=== PATIENT | female | born 1930 | race Caucasian/White ===

== ENCOUNTER 2017-08-24 15:19 | Inpatient (IN) | payer MEDICARE, BC ==
[2017-08-24] MEDS ORDERED: ALBUTEROL NEB SOL 2.5MG/3ML 1 VIAL SOL NEB PRN (15:30)
[2017-08-24] MEDS: SODIUM CHLORIDE 0.9% FLUSH 10 ML SOL IV SCH ×3 (16:34→23:49)
[2017-08-24] MEDS: SOLUMEDROL 125 MG/2 ML 125 MG/2 ML PDS IV SCH ×2 (16:35→22:07)
[2017-08-24] MEDS: CEFTRIAXONE 1 GM (PREMIX) 1 GM/50 ML SOL IV SCH (16:35)
[2017-08-24] MEDS: AZITHROMYCIN 250 MG TAB PO SCH (16:37)
[2017-08-24] MEDS: ALBUTEROL/IPRATROPIUM 1 VIAL SOL INH SCH ×2 (18:30→22:04)
[2017-08-24] MEDS ORDERED: LOPERAMIDE HYDROCHLORIDE 2 MG CAP PO PRN (22:00)
[2017-08-24] MEDS ORDERED: AMLODIPINE 5 MG TAB PO ONE (22:21)
[2017-08-24] MEDS: BUDESONIDE 0.5 MG/2 ML AMPUL.NEB INH SCH (23:50)
[2017-08-25] MEDS: SOLUMEDROL 125 MG/2 ML 125 MG/2 ML PDS IV SCH ×4 (03:50→20:45)
[2017-08-25] MEDS: SODIUM CHLORIDE 0.9% FLUSH 10 ML SOL IV SCH ×4 (03:50→20:45)
[2017-08-25] MEDS ORDERED: AMLODIPINE 5 MG TAB PO ONE (06:44)
[2017-08-25] MEDS: LEVOTHYROXINE SODIUM 50 MCG TAB PO SCH (06:44)
[2017-08-25 07:39] LABS: BASOPHILS % (AUTO) 0 % (0-3); EOSINOPHILS % (AUTO) 0 % (0-9); HEMATOCRIT 30 % (35-47); MEAN CORPUSCULAR HGB CONC 31.4 gm/dl (32.0-36.0); MEAN CORPUSCULAR VOLUME 89 fL (81-99); MONOCYTES % (AUTO) 0.9 % (0-12); NEUTROPHILS % (AUTO) 96.6 % (37-80)
[2017-08-25 07:43] LABS: CALCIUM 8.4 mg/dl (8.5-10.1); POTASSIUM 4.3 mMol/L (3.5-5.1)
[2017-08-25] MEDS: ALBUTEROL/IPRATROPIUM 1 VIAL SOL INH SCH ×4 (08:07→20:43)
[2017-08-25] MEDS: ALLOPURINOL 100 MG TAB PO SCH (08:15)
[2017-08-25] MEDS: OXYCODONE HYDROCHLORIDE 5 MG TAB PO SCH ×2 (08:15→20:47)
[2017-08-25] MEDS: ASPIRIN EC 81 MG PO SCH (08:15)
[2017-08-25] MEDS: FUROSEMIDE 20 MG TAB PO SCH ×2 (08:15→12:45)
[2017-08-25] MEDS: POTASSIUM CHLORIDE 10 MEQ TER PO SCH (08:15)
[2017-08-25] MEDS: ENOXAPARIN 40 MG SOL SC SCH (08:16)
[2017-08-25] MEDS: POLYETHYLENE GLYCOL 17 GM/1 TBS PDS PO SCH (08:16)
[2017-08-25] MEDS ORDERED: OXYCODONE HYDROCHLORIDE 5 MG TAB PO SCH (09:00)
[2017-08-25] MEDS ORDERED: OMEPRAZOLE 20 MG CAPSULE PO SCH (09:00)
[2017-08-25] MEDS: BUDESONIDE 0.5 MG/2 ML AMPUL.NEB INH SCH ×2 (09:52→20:52)
[2017-08-25] MEDS: PANTOPRAZOLE SODIUM 40 MG ECT PO SCH (09:52)
[2017-08-25] MEDS: METOPROLOL SUCCINATE 25 MG TAB.ER.24H PO SCH (09:53)
[2017-08-25] MEDS: BENAZEPRIL PO SCH (10:57)
[2017-08-25] MEDS: AMLODIPINE PO SCH (10:57)
[2017-08-25] MEDS: CEFTRIAXONE 1 GM (PREMIX) 1 GM/50 ML SOL IV SCH (15:34)
[2017-08-25] MEDS: AZITHROMYCIN 250 MG TAB PO SCH (15:34)
[2017-08-26] MEDS: SODIUM CHLORIDE 0.9% FLUSH 10 ML SOL IV SCH ×4 (02:29→16:46)
[2017-08-26] MEDS: SOLUMEDROL 125 MG/2 ML 125 MG/2 ML PDS IV SCH ×4 (04:15→21:32)
[2017-08-26] MEDS: ACETAMINOPHEN 325 MG PO PRN (04:32)
[2017-08-26] MEDS: LEVOTHYROXINE SODIUM 50 MCG TAB PO SCH (06:50)
[2017-08-26] MEDS: AZITHROMYCIN 250 MG TAB PO SCH (09:38)
[2017-08-26] MEDS: ALLOPURINOL 100 MG TAB PO SCH (09:38)
[2017-08-26] MEDS: ASPIRIN EC 81 MG PO SCH (09:38)
[2017-08-26] MEDS: POTASSIUM CHLORIDE 10 MEQ TER PO SCH (09:38)
[2017-08-26] MEDS: PANTOPRAZOLE SODIUM 40 MG ECT PO SCH (09:38)
[2017-08-26] MEDS: FUROSEMIDE 20 MG TAB PO SCH ×2 (09:47→13:19)
[2017-08-26] MEDS: AMLODIPINE PO SCH (09:48)
[2017-08-26] MEDS: BENAZEPRIL PO SCH (09:48)
[2017-08-26] MEDS: OXYCODONE HYDROCHLORIDE 5 MG TAB PO SCH ×2 (09:48→21:32)
[2017-08-26] MEDS: ENOXAPARIN 40 MG SOL SC SCH (09:51)
[2017-08-26] MEDS: POLYETHYLENE GLYCOL 17 GM/1 TBS PDS PO SCH (09:57)
[2017-08-26] MEDS: ALBUTEROL/IPRATROPIUM 1 VIAL SOL INH SCH ×4 (09:59→21:38)
[2017-08-26] MEDS: METOPROLOL SUCCINATE 50 MG TER PO SCH (10:02)
[2017-08-26] MEDS: BUDESONIDE 0.5 MG/2 ML AMPUL.NEB INH SCH ×2 (10:08→21:50)
[2017-08-26] MEDS: METOPROLOL SUCCINATE 25 MG TAB.ER.24H PO SCH (10:13)
[2017-08-26] MEDS: CEFTRIAXONE 1 GM (PREMIX) 1 GM/50 ML SOL IV SCH (16:46)
[2017-08-27] MEDS: ACETAMINOPHEN 325 MG PO PRN (00:24)
[2017-08-27] MEDS: SODIUM CHLORIDE 0.9% FLUSH 10 ML SOL IV SCH ×2 (00:26→09:03)
[2017-08-27] MEDS: LEVOTHYROXINE SODIUM 50 MCG TAB PO SCH (06:03)
[2017-08-27 07:42] LABS: CALCIUM 8.8 mg/dl (8.5-10.1)
[2017-08-27 07:49] LABS: BASOPHILS % (AUTO) 0 % (0-3); EOSINOPHILS % (AUTO) 0 % (0-9); HEMATOCRIT 30 % (35-47); MEAN CORPUSCULAR HGB CONC 29.9 gm/dl (32.0-36.0); MEAN CORPUSCULAR VOLUME 89 fL (81-99); MONOCYTES % (AUTO) 2.2 % (0-12)
[2017-08-27] MEDS: ASPIRIN EC 81 MG PO SCH (09:03)
[2017-08-27] MEDS: POTASSIUM CHLORIDE 10 MEQ TER PO SCH (09:03)
[2017-08-27] MEDS: BUDESONIDE 0.5 MG/2 ML AMPUL.NEB INH SCH (09:03)
[2017-08-27] MEDS: FUROSEMIDE 20 MG TAB PO SCH ×2 (09:03→12:58)
[2017-08-27] MEDS: AMLODIPINE PO SCH (09:04)
[2017-08-27] MEDS: METOPROLOL SUCCINATE 50 MG TER PO SCH (09:04)
[2017-08-27] MEDS: POLYETHYLENE GLYCOL 17 GM/1 TBS PDS PO SCH (09:04)
[2017-08-27] MEDS: BENAZEPRIL PO SCH (09:04)
[2017-08-27] MEDS: PANTOPRAZOLE SODIUM 40 MG ECT PO SCH (09:04)
[2017-08-27] MEDS: ALLOPURINOL 100 MG TAB PO SCH (09:05)
[2017-08-27] MEDS: AZITHROMYCIN 250 MG TAB PO SCH (09:05)
[2017-08-27] MEDS: SOLUMEDROL 125 MG/2 ML 125 MG/2 ML PDS IV SCH (09:18)
[2017-08-27] MEDS: OXYCODONE HYDROCHLORIDE 5 MG TAB PO SCH (09:18)
[2017-08-27] MEDS: ENOXAPARIN 40 MG SOL SC SCH (09:22)
[2017-08-27] MEDS: ALBUTEROL/IPRATROPIUM 1 VIAL SOL INH SCH ×2 (09:26→13:12)
[2017-08-27 09:37] VITALS: PULSE 99
[2017-08-27 10:14] VITALS: BP 153/75; TEMP 97.6
[2017-08-27 10:22] VITALS: RESP 20; O2SAT 98
== END 2017-08-27 13:12 | DRG 192 ==
LOC: ACUTE CARE 15:24
PROVIDERS: ADMIT Family Medicine; ATTEND Family Medicine
PROC: F01ZDFZ Gait and/or Balance Assessment using Assistive, Adaptive, Supportive or Protective Equipment (ICD-10-PCS; principal; 2017-08-25)
PROC: F01ZBZZ Bed Mobility Assessment (ICD-10-PCS; 2017-08-25)
PROC: F01ZCZZ Transfer Assessment (ICD-10-PCS; 2017-08-25)
DX: J44.1 Chronic obstructive pulmonary disease with (acute) exacerbation (principal); D64.9 Anemia, unspecified; R60.1 Generalized edema; R53.1 Weakness
CPT/HCPCS: 36415; 80048; 83880; 84484; 85025; 87040; 94150; 94640; J0696; J1650; J2930; J7603; J7620